=== PATIENT | female | born 1990 | race Caucasian/White ===

== ENCOUNTER → 2017-01-16 18:34 | Observation (INO) ==
[2017-01-16 17:31] LABS: Bilirubin,Urine Negative (Negative); Blood,Urine Negative (Negative); Clarity,Urine Clear (Clear); Color,Urine Yellow (Yellow); Glucose,Urine (UA) Normal (Normal); Ketones,Urine Negative (Negative); Leukocyte Esterase,Urine Negative (Negative); Nitrite,Urine Negative (Negative); Protein,Urine Negative (Neg-Trace); Specific Gravity,Urine < 1.005 (1.010-1.025); Urobilinogen,Urine Normal (Normal)
--- NOTE | 2017-01-16 17:51 | OB/GYN Progress Note ---
Date of Encounter: 01/16/17 Time of Encounter: 17:49 - Assessment and Plan (1) 32 weeks gestation of Current Visit: Yes Status: Acute Patient admitted for observation for labor evaluation (2) Vaginal discharge during Current Visit: Yes Status: Acute Vaginosis panel collected and sent to lab Qualifiers: Trimester: third trimester Qualified Code(s): O26.893 - Other specified related conditions, third trimester; N89.8 - Other specified noninflammatory disorders of vagina (3) Urinary frequency Current Visit: Yes Status: Acute Ua sent to lab Subjective - Subjective Principal diagnosis: Lower abdominal cramping with discharge Interval history: Patient is a 26 y/o female at 32 weeks gestational age presents to labor and delivery with c/o lower abdominal cramping with increase in discharge. Patient states the cramping started while she was standing at work. Patient denies VB and reports +FM. Patient reports urinary frequency with occasional dysuria. Patient is currently in baby centered recovery group and last took her Subutex around 1300. Patient asking to eat at this time. Antepartum ROS: loss of fluid, movement normal, no vaginal bleeding Objective - Vital Signs Vital Signs: Intake and Output 01/16/17 01/16/17 01/16/17 07:59 15:59 23:59 Other: Weight 80.7 kg Patient Weight 01/16/17 23:59 Weight 80.7 kg - Exam FHR: auscultation normal, category 1 FHR comments: 135 bpm moderate variability + 15x15 accels no decels noted. Cat. 1 tracing. Reactive NST. No contractions noted on the monitor. Auscultation: bilateral: normal Abdomen: Present: normal appearance, soft, gravid Uterus: Present: normal Cervical dilation: visually closed on exam Comments: Speculum exam: Negative pooling, Nitrazine negative. Vaginosis panel collected and sent to lab. - Labs Labs: Abnormal lab results Ur Specific [place] < 1.005 (1.010-1.025) L 01/16/17 17:10
--- NOTE | 2017-01-16 18:23 | Discharge Summary ---
Date of Encounter: 01/16/17 Time of Encounter: 18:22 - Discharge Diagnosis (1) 32 weeks gestation of Priority: Primary Status: Acute (2) Vaginal discharge during Priority: Secondary Status: Acute Comments: VAginosis panel pending will call with results. Qualifiers: Trimester: third trimester Qualified Code(s): O26.893 - Other specified related conditions, third trimester; N89.8 - Other specified noninflammatory disorders of vagina (3) Urinary frequency Priority: Secondary Status: Acute Comments: UA WNL - Discharge Medications Home Medications: Promethazine [Phenergan] 25 mg PO Q6HR PRN #16 tablet 07/10/15 [Rx] Acetaminophen [Tylenol] 650 mg PO Q6HR PRN 01/16/17 [History] Buprenorphine HCl [Subutex] 8 mg SL BID 01/16/17 [History] [id number]/Iron Fumarate/FA/Dss [ 19 Tablet] 1 each PO DAILY 01/16/17 [ History] Allergies/Adverse Reactions: Allergies Cefaclor [From Ceclor] Allergy (Verified 12/14/16 18:41) Hives Data Procedures and tests throughout hospitalization: Laboratory Tests 01/16/17 17:10 Urine Color Yellow Urine Clarity Clear Urine pH 7.0 Ur Specific [place] < 1.005 L Urine Protein Negative Urine Glucose (UA) Normal Urine Ketones Negative Urine Blood Negative Urine Nitrite Negative Urine Bilirubin Negative Urine Urobilinogen Normal Ur Leukocyte Esterase Negative Ur Culture Indicated? NO Labs on day of discharge: Labs from last 24 hours 01/16/17 17:10 Urine Color Yellow Urine Clarity Clear Urine pH 7.0 Ur Specific [place] < 1.005 L Urine Protein Negative Urine Glucose (UA) Normal Urine Ketones Negative Urine Blood Negative Urine Nitrite Negative Urine Bilirubin Negative Urine Urobilinogen Normal Ur Leukocyte Esterase Negative Ur Culture Indicated? NO Date of admission: 01/16/17 17:03 Discharging clinician: Joanne Parsons Anticipated date of discharge: 01/16/17 - Patient Status Disposition: Home, Self-Care Condition: Good Functional capacity at discharge: independent ambulation - Discharge Instructions - Diet and Activity Activity: increase activity as tolerated Diet: regular diet Hospital Course WINE STEWARD/STEWARDESS Time Attestation: Total time spent providing and/or coordinating discharge services: Time Spent: Less than 30 minutes - VTE Reasons for not Prescribing Prophylaxis: Treatment not Indicated - Low risk for VTE
[2017-01-16 18:49] LABS: Candida DNA Not Detected (Not Detect); Gardnerella DNA Not Detected (Not Detect); Trichomonas DNA Not Detected (Not Detect)
== END | disposition home or self-care (01) ==
LOC: 1NENULAB
PROVIDERS: ADMIT Obstetrics & Gynecology; ATTEND Obstetrics & Gynecology

== ENCOUNTER 2017-03-04 22:16 | Observation (INO) ==
--- NOTE | 2017-03-20 16:02 | OB/GYN Progress Note ---
Date of Encounter: 03/04/17 Time of Encounter: 23:00 - Assessment and Plan (1) False labor Status: Acute No cervical change, irregular contractions, will d/c home. (2) 39 weeks gestation of Status: Chronic Subjective - Subjective Principal diagnosis: cramps Interval history: Pt is 39w1d and presents with c/o cramps. No vb or lof. Objective - Exam FHR: category 1 Comments: No cervical change
== END 2017-03-04 23:48 | disposition home or self-care (01) ==
LOC: 1NENULAB
PROVIDERS: ADMIT Obstetrics & Gynecology; ATTEND Obstetrics & Gynecology